=== PATIENT | male | born 1975 | race Caucasian/White ===

== ENCOUNTER 2017-02-18 20:16 | Emergency (ER) | payer OTHER ==
[2017-02-18 21:27] LABS: Bilirubin,Urine NEG (Negative); Blood,Urine NEG (Negative); Ketones,Urine NEG (Negative); Leukocyte Esterase,Urine NEG (Negative); Nitrite,Urine NEG (Negative); Protein,Urine <15 mg/dL mg/dL (Negative); RBC,Urine < 1.0 /HPF (0.0-6.0); WBC,Urine < 1.0 /HPF (0.0-6.0)
[2017-02-19] MEDS ORDERED: NORCO 5/325 PO ONE (03:58)
--- NOTE | 2017-02-19 04:04 | Emergency Department Report ---
ED Fall HPI - General Chief Complaint: Fall Stated Complaint: STOMACH/BACK INJURY Time Seen by Provider: 02/19/17 03:22 Source: patient Mode of arrival: Ambulatory - History of Present Illness Initial Comments: 41-year-old male past medical history none presents with complaint of lower back pain and mild abdominal pain status post fall. 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 Patient states that he was able to immediately stand up but has been experiencing lower back pain intermittently since the fall yesterday afternoon. Patient denies any lacerations denies any loss of consciousness denies any neck pain no shortness of breath no palpitations no nausea no vomiting. Patient denies any hematuria no upper or lower extremity paresthesias patient is able to ambulate without significant difficulty. Patient is fully lucid awake alert and oriented 3 appears calm answering my questions with an context, patient is Macedonian speaking which I speak fluently. MD Complaint: fall Fall From: from height (distance) (4 feet) Fall Witnessed: yes, by bystander Place Fall Occurred: work Loss of Consciousness: none Prolonged Down Time?: no Symptoms Prior to Fall: none Location: back Severity: moderate Severity scale (0 -10): 5 Quality: sharp, aching Context: tripped/slipped Associated Symptoms: abdominal pain - Related Data Previous Rx's Medication Instructions Recorded Last Taken Type HYDROcodone/APAP 5-325 [[place] 1 each PO Q6HR PRN #12 tablet 02/19/17 Unknown Rx 5/325] Naproxen [Naprosyn TAB] 500 mg PO BID PRN #20 tablet 02/19/17 Unknown Rx Allergies Allergy/AdvReac Type Severity Reaction Status Date / Time No Known Allergies Allergy Verified 02/18/17 20:23 ED Review of Systems ROS: Stated complaint: STOMACH/BACK INJURY Other details as noted in HPI Constitutional: denies: chills, fever Eyes: denies: eye pain, eye discharge, vision change ENT: denies: ear pain, throat pain Respiratory: denies: cough, shortness of breath, wheezing Cardiovascular: denies: chest pain, palpitations Endocrine: no symptoms reported Gastrointestinal: denies: abdominal pain, nausea, diarrhea Genitourinary: denies: urgency, dysuria Musculoskeletal: denies: back pain, joint swelling, arthralgia Skin: denies: rash, lesions Neurological: denies: headache, weakness, paresthesias Psychiatric: denies: anxiety, depression Hematological/Lymphatic: denies: easy bleeding, easy bruising ED Past Medical Hx - Past Medical History Previous Medical History?: No - Surgical History Past Surgical History?: No - Social History Smoking Status: Never Smoker Substance Use Type: None - Medications Home Medications: Home Medications Medication Instructions Recorded Confirmed Last Taken Type HYDROcodone/APAP 5-325 [[place] 1 each PO Q6HR PRN #12 tablet 02/19/17 Unknown Rx 5/325] Naproxen [Naprosyn TAB] 500 mg PO BID PRN #20 tablet 02/19/17 Unknown Rx ED Physical Exam - General Limitations: Language Barrier General appearance: alert, in no apparent distress - Head Head exam: Present: atraumatic, normocephalic - Eye Eye exam: Present: normal appearance, PERRL, EOMI - ENT ENT exam: Present: mucous membranes moist - Neck Neck exam: Present: normal inspection - Respiratory Respiratory exam: Present: normal lung sounds bilaterally. Absent: respiratory distress - Cardiovascular Cardiovascular Exam: Present: regular rate, normal rhythm. Absent: systolic murmur, diastolic murmur, rubs, gallop - GI/Abdominal GI/Abdominal exam: Present: soft, tenderness (patient has mild tenderness just below umbilicus on deep palpation, pain is 3 out of 10 as per patient), normal bowel sounds - Rectal Rectal exam: Present: deferred - exam: Present: normal inspection External exam: Present: normal external exam - Extremities Exam Extremities exam: Present: normal inspection, full ROM - Back Exam Back exam: Present: normal inspection, tenderness, paraspinal tenderness (mild paraspinal tenderness just above the iliac crests and L-spine region no midline tenderness in cervical thoracic or lumbar spine on clinical exam) - Neurological Exam Neurological exam: Present: alert, oriented X3, CN II-XII intact, normal gait - Psychiatric Psychiatric exam: Present: normal affect, normal mood - Skin Skin exam: Present: warm, dry, intact, normal color. Absent: rash ED Course Vital Signs 02/18/17 02/19/17 20:23 00:13 Temperature 97.9 F Pulse Rate 81 70 Respiratory 20 18 Rate Blood Pressure 135/81 122/78 O2 Sat by Pulse 98 98 Oximetry ED Medical Decision Making - Medical Decision Making A/P: Mechanical fall from 4 feet 1-Dr. Gee also examined the patients abdomen with me at bedside, pain is minimal to deep palpation 2-patient disrobe for exam, fully ambulatory no neurovascular deficits on clinical exam strength 5 out of 5 all extremities no saddle paresthesias no clinical signs or history of cord compression 3-x-ray hips and L-spine within normal limits no fractures 4-short course naproxen and [place] for pain 5-follow up with primary care doctor Bedside eFAST scan for Trauma Brief Note done at 3:30AM by CROW Gonzalez at bedside : Anatomical Areas Surveyed During Exam: Donna-hepatic/Rondon's Pouch/Hepato-Renal Recess: NO echogenic stripe/fluid collection seen on exam Pericardial: NO pericardial effusion seen on exam Pelvic: No echogenic stripe seen surrounding the bladder Perisplenic: No suad-splenic collection, no echogenic stripe Bilateral Lung Ware: Full Lung sliding seen b/l Lung ware from top of anterior chest wall down to diaphragm b/l. Seashore sign seen on M-Mode b/l lung ware indicating fully expanded and sliding lung pleura. Findings reported to Dr. Gee ED attending Critical care attestation.: If time is entered above; I have spent that time in minutes in the direct care of this critically ill patient, excluding procedure time. ED Disposition Clinical Impression: Fall Qualifiers: Encounter type: initial encounter Qualified Code(s): W19.XXXA - Unspecified fall, initial encounter Disposition: DISCHARGED TO HOME OR SELFCARE Is pt being admited?: No Does the pt Need Aspirin: No Condition: Stable Instructions: Acute Low Back Pain (ED) Prescriptions: HYDROcodone/APAP 5-325 [[place] 5/325] 1 each PO Q6HR PRN #12 tablet PRN Reason: Pain Naproxen [Naprosyn TAB] 500 mg PO BID PRN #20 tablet PRN Reason: Pain Referrals: BRIAN TRAN MD [Staff Physician] - 3-5 Days [facility] [Outside] - 3-5 Days Forms: Work/School Release Form(ED) Time of Disposition: 04:35 Print Language: ESTONIAN
--- NOTE | 2017-02-19 04:30 | XRay Report ---
FINAL REPORT PROCEDURE: XR HIPS BILAT 2V W/PELVIS TECHNIQUE: Pelvis radiographs, 2 views. HISTORY: HIP PAIN COMPARISON: No prior studies are available for comparison. FINDINGS: Fracture (s) and/or Dislocation(s): None . Joint space(s): Normal. Soft tissues: Normal. Bone mineralization: Normal. Foreign bodies: None. IMPRESSION: Normal Examination.
--- NOTE | 2017-02-19 04:33 | XRay Report ---
FINAL REPORT PROCEDURE: XR SPINE LUMBOSACRAL 2-3V TECHNIQUE: Lumbar spine radiographs, including AP, lateral, and lumbosacral spot views. CPT 63910 HISTORY: LOWER BACK PAIN COMPARISON: No prior studies are available for comparison. FINDINGS: Alignment: Normal. Vertebral body heights/Disk spaces: Normal. Fracture(s): None. Facets: Normal. Bone mineralization: Normal. IMPRESSION: Normal Examination.
[2017-02-19 05:00] VITALS: BP 130/84
== END 2017-02-19 05:02 | disposition home or self-care (01) ==
LOC: ED 20:16
DX: M54.5 Low back pain (principal); R10.9 Unspecified abdominal pain; W17.89XA Other fall from one level to another, initial encounter; Y93.89 Activity, other specified; Y99.8 Other external cause status; Y92.89 Other specified places as the place of occurrence of the external cause
CPT/HCPCS: 72100; 73521; 81001; 99283